=== PATIENT | female | born 1970 | race African-American/Black ===

== ENCOUNTER 2018-03-14 19:56 | Emergency (ER) | payer OTHER ==
[2018-03-14 20:01] VITALS: BP 135/87
[2018-03-14] MEDS ORDERED: FUL-GLO OP ONE (20:46)
[2018-03-14] MEDS ORDERED: BSS OU ONE (20:46)
[2018-03-14] MEDS ORDERED: TETRACAINE 0.5% OU ONE (20:47)
[2018-03-14] MEDS ORDERED: NACL 0.9% 1000 ML 1,000 ML IV ONE (20:51)
--- NOTE | 2018-03-14 22:09 | Emergency Department Report ---
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 She reported watery red eyes with some burning pain and blurred vision in the swollen eyelid. She reports no fever, chills, sweats. There has been no no bleeding and no broken skin. She has no presyncope or tinnitus. MD chief complaint: eye pain, eye injury -: Sudden Location: right eye Place: work If Injury: none, chemical exposure Eye Symptoms: burning, redness, pain, decreased vision, blurry vision, photophobia Severity: mild If Pain, Quality: burning Consistency: constant Context: injury, other Associated Symptoms: none Treatments Prior to Arrival: none - Related Data Previous Rx's Medication Instructions Recorded Last Taken Type Ketorolac Tromethamine [Acular] 1 - 2 drops OS Q6H PRN #1 bottle 03/14/18 Unknown Rx Tobramycin [Tobrex] 1 drop OP Q4H #1 bottle 03/14/18 Unknown Rx Allergies Allergy/AdvReac Type Severity Reaction Status Date / Time No Known Allergies Allergy Verified 03/14/18 22:12 ED Review of Systems ROS: Stated complaint: CHEMICAL IN RIGHT EYE Other details as noted in HPI Constitutional: denies: chills, fever Eyes: eye pain, vision change. denies: eye discharge ENT: denies: ear pain, throat pain Respiratory: denies: cough, shortness of breath, wheezing Cardiovascular: denies: chest pain, palpitations Endocrine: no symptoms reported Gastrointestinal: denies: abdominal pain, nausea, diarrhea Genitourinary: denies: urgency, dysuria, discharge Musculoskeletal: denies: back pain, joint swelling, arthralgia Skin: denies: rash, lesions Neurological: denies: headache, weakness, paresthesias Psychiatric: denies: anxiety, depression Hematological/Lymphatic: denies: easy bleeding, easy bruising ED Past Medical Hx - Past Medical History Previous Medical History?: No - Surgical History Additional Surgical History: NOSE - Social History Smoking Status: Never Smoker Substance Use Type: None - Medications Home Medications: Home Medications Medication Instructions Recorded Confirmed Last Taken Type Ketorolac Tromethamine [Acular] 1 - 2 drops OS Q6H PRN #1 bottle 03/14/18 Unknown Rx Tobramycin [Tobrex] 1 drop OP Q4H #1 bottle 03/14/18 Unknown Rx ED Physical Exam - General Limitations: No Limitations General appearance: alert, in no apparent distress - Head Head exam: Present: atraumatic, normocephalic - Eye Eye exam: Present: normal appearance, PERRL, EOMI, conjunctival injection, other (corneal abrasion noted to the right coronary over the area of the pupil increased fluorescing uptake in that region.). Absent: scleral icterus, periorbital swelling, periorbital tenderness Pupils: Present: normal accommodation - ENT ENT exam: Present: normal exam, normal orophraynx, mucous membranes moist, TM's normal bilaterally - Neck Neck exam: Present: normal inspection, full ROM. Absent: tenderness, lymphadenopathy - Respiratory Respiratory exam: Present: normal lung sounds bilaterally. Absent: respiratory distress, chest wall tenderness, accessory muscle use, decreased breath sounds - Cardiovascular Cardiovascular Exam: Present: regular rate, normal rhythm. Absent: systolic murmur, diastolic murmur, rubs, gallop - GI/Abdominal GI/Abdominal exam: Present: soft, normal bowel sounds - Extremities Exam Extremities exam: Present: normal inspection - Back Exam Back exam: Present: normal inspection - Neurological Exam Neurological exam: Present: alert, oriented X3 - Psychiatric Psychiatric exam: Present: normal affect, normal mood - Skin Skin exam: Present: warm, dry, intact, normal color. Absent: rash ED Course Vital Signs 03/14/18 03/14/18 20:00 20:31 Temperature 98.6 F 98.6 F Pulse Rate 75 74 Respiratory 18 18 Rate Blood Pressure 135/87 135/87 O2 Sat by Pulse 100 99 Oximetry ED Medical Decision Making - Medical Decision Making After moldiness lenses used to irrigate 1 L normal saline to the right. She reports in improved and the sensation of burning. There is some system some decrease in the redness well, but there is still significant corneal injection. No bleeding, no subconjunctival hematoma noted. No increased to the periorbital swelling which was also mild. There is no nystagmus. No signs of entrapment a full range of motion of the eye. Critical care attestation.: If time is entered above; I have spent that time in minutes in the direct care of this critically ill patient, excluding procedure time. ED Disposition Clinical Impression: Chemical injury to cornea, Corneal abrasion Disposition: TO HOME OR SELFCARE Is pt being admited?: No Does the pt Need Aspirin: No Condition: Stable Instructions: Corneal Abrasion (ED) Prescriptions: Ketorolac Tromethamine [Acular] 1 - 2 drops OS Q6H PRN #1 bottle PRN Reason: eye pain Tobramycin [Tobrex] 1 drop OP Q4H #1 bottle Referrals: OMAR TRAORE MD [Staff Physician] - 3-5 Days PELON NAJERA MD [Staff Physician] - 03/15/18 ROSALBA JONES MD [Staff Physician] - 03/15/18
== END 2018-03-14 22:25 | disposition home or self-care (01) ==
LOC: ED 19:56
DX: S05.01XA Injury of conjunctiva and corneal abrasion without foreign body, right eye, initial encounter (principal); T52.91XA Toxic effect of unspecified organic solvent, accidental (unintentional), initial encounter; Y93.89 Activity, other specified; Y99.0 Civilian activity done for income or pay; Y92.69 Other specified industrial and construction area as the place of occurrence of the external cause
CPT/HCPCS: 99282; J7030